=== PATIENT | male | born 1950 | race Caucasian/White ===

== ENCOUNTER 2018-07-08 08:30 | Day surgery (SDC) | payer MEDICARE, OTHER, SELFPAY ==
[2018-07-08 09:48] VITALS: BP 140/76; PULSE 76; RESP 16; TEMP 37.1; O2SAT 99; BMI 28.2
[2018-07-08] MEDS: PROPARACAINE 0.5% OPHTH SOL 2 DROPS EYE-OP (09:55)
[2018-07-08] MEDS: CATARACT EYE COMPOUND (10 DROPS/SYRINGE) 3 DROPS EYE-OP (10:00)
--- NOTE | 2018-07-08 10:44 | P.OP.PRE_ITS ---
Pre-operative Note Interval Note Changes: No
--- NOTE | 2018-07-08 10:44 | PM.PREOP ---
Pre-operative Note Interval Note Changes: No
--- NOTE | 2018-07-08 10:45 | P.OP_ITS ---
Operative Date/Time/Diagnoses Pre-op diagnosis: Cataract Right eye Post-op diagnosis: same Procedure & Clinicians Procedure: Cataract Surgery Same procedure as scheduled: Yes Surgeon: Eric Paul Anesthesia Type: MAC +/- and Sedation Operative Notes Procedure in detail: Patient brought to the operating suite. Tetracaine drops placed in the right eye. Patient was prepped and draped in sterile manner. Wire lid speculum was placed in the eye. Betadine drops were placed on the eye. This was irrigated. Lidocaine jelly was placed on the eye. A paracentesis port was created with a side-port blade. 0.1 mL 1% preservative free lidocaine was injected into the anterior chamber. The anterior chamber was deepened with viscoelastic. 2.6 mm keratome was used to create a temporal clear corneal incision. Cystotome and Utrata forceps were used to create continuous tear capsulorrhexis. Balanced salt solution was used to hydro dissect the nucleus. The phacoemulsification handpiece was inserted and the nucleus was removed using the stop and chop technique. The irrigation aspiration handpiece was inserted and the remaining cortex was removed. Anterior chamber was deepened with viscoelastic. An Rodriges ZCB00 intraocular lens with a power of 13.5 was injected into the capsular bag. Irrigation aspiration handpiece was inserted and the remaining viscoelastic was removed. Incision was hydrated with balanced salt solution and found to be leak free with pressure with Weck- Linnea sponges. 0.1 mL Vigamox injected anterior chamber. 0.3 mL Kenalog 10 mg was injected subconjunctivally. Lid speculum was removed. The patient left the operating room in excellent condition. Complications: none Condition: stable Disposition: same day surgery
[2018-07-08] MEDS: CHONDROIDTIN/SOD HYALURONATE 1.05 ML SYRINGE INTRAOCULA (11:16)
[2018-07-08] MEDS: LIDOCAINE JELLY 2% 5 ML 1 APPLIC TOP (11:17)
[2018-07-08] MEDS: TETRACAINE 0.5% OPHTH DROPS 15 ML 2 DROPS EYE-RIGHT (11:18)
[2018-07-08] MEDS: PHENYLEPHRINE/LIDOCAINE VIAL (OR) 0.2 ML EYE-OP (11:18)
[2018-07-08] MEDS: MOXIFLOXACIN OPHTH DROPS 3 ML BOTTLE 2 DROPS INJ (11:18)
[2018-07-08] MEDS: TRIAMCINOLONE 50 MG/5 ML VIAL INJ (11:18)
[2018-07-08] MEDS: BALANCED SALT IRRIG SOLN NO.2 500 ML, EPINEPHrine 1 MG IRR (11:19)
[2018-07-08 11:30] VITALS: BP 122/72; PULSE 69; RESP 12; TEMP 36.5; O2SAT 97
== END 2018-07-08 11:46 ==
LOC: OR 08:31
PROVIDERS: Visit Provider Ophthalmology
DX: H25.11 Age-related nuclear cataract, right eye (principal); I10 Essential (primary) hypertension; I73.00 Raynaud's syndrome without gangrene
CPT/HCPCS: J0171; J2250; J3010; J3301

== ENCOUNTER 2018-07-22 06:18 | Day surgery (SDC) | payer MEDICARE, OTHER, SELFPAY ==
[2018-07-22] MEDS: PROPARACAINE 0.5% OPHTH SOL 2 DROPS EYE-OP (07:10)
[2018-07-22 07:13] VITALS: BP 130/74; PULSE 71; RESP 16; TEMP 36.7; O2SAT 99; BMI 25.8
[2018-07-22] MEDS: CATARACT EYE COMPOUND (10 DROPS/SYRINGE) 3 DROPS EYE-OP (07:15)
--- NOTE | 2018-07-22 07:45 | P.OP.PRE_ITS ---
Pre-operative Note Interval Note Changes: No
--- NOTE | 2018-07-22 07:45 | PM.PREOP ---
Pre-operative Note Interval Note Changes: No
--- NOTE | 2018-07-22 07:46 | P.OP_ITS ---
Operative Date/Time/Diagnoses Pre-op diagnosis: Nuclear Cataract Left eye Post-op diagnosis: same Procedure & Clinicians Surgeon: Eric Paul Anesthesia Type: MAC +/- and Sedation Operative Notes Procedure in detail: Patient brought to the operating suite. Tetracaine drops placed in the left eye. Patient was prepped and draped in sterile manner. Wire lid speculum was placed in the eye. Betadine drops were placed on the eye. This was irrigated. Lidocaine jelly was placed on the eye. A paracentesis port was created with a side-port blade. 0.1 mL 1% preservative free lidocaine was injected into the anterior chamber. The anterior chamber was deepened with viscoelastic. 2.6 mm keratome was used to create a temporal clear corneal incision. Cystotome and Utrata forceps were used to create continuous tear capsulorrhexis. Balanced salt solution was used to hydro dissect the nucleus. The phacoemulsification handpiece was inserted and the nucleus was removed using the stop and chop technique. The irrigation aspiration handpiece was inserted and the remaining cortex was removed. Anterior chamber was deepened with viscoelastic. An Rodriges ZCB00 intraocular lens with a power of 22.0 was injected into the capsular bag. Irrigation aspiration handpiece was inserted and the remaining viscoelastic was removed. Incision was hydrated with balanced salt solution and found to be leak free with pressure with Weck- Linnea sponges. 0.1 mL Vigamox injected anterior chamber. 0.3 mL Kenalog 10 mg was injected subconjunctivally. Lid speculum was removed. The patient left the operating room in excellent condition. Complications: none Condition: stable Disposition: same day surgery
[2018-07-22] MEDS: PHENYLEPHRINE/LIDOCAINE VIAL (OR) 0.2 ML EYE-OP (07:56)
[2018-07-22] MEDS: TRIAMCINOLONE 50 MG/5 ML VIAL INJ (07:57)
[2018-07-22] MEDS: MOXIFLOXACIN OPHTH DROPS 3 ML BOTTLE 2 DROPS INJ (07:57)
[2018-07-22] MEDS: CHONDROIDTIN/SOD HYALURONATE 1.05 ML SYRINGE INTRAOCULA (07:58)
[2018-07-22] MEDS: LIDOCAINE JELLY 2% 5 ML 1 APPLIC TOP (07:58)
[2018-07-22] MEDS: TETRACAINE 0.5% OPHTH DROPS 15 ML 2 DROPS EYE-LEFT (07:58)
[2018-07-22] MEDS: BALANCED SALT IRRIG SOLN NO.2 500 ML, EPINEPHrine 1 MG IRR (07:59)
[2018-07-22 08:16] VITALS: BP 115/67; PULSE 68; RESP 16; TEMP 36.3; O2SAT 97
== END 2018-07-22 08:24 | disposition home or self-care (01) ==
PROVIDERS: PCP Family Medicine; Visit Provider Ophthalmology
DX: H25.12 Age-related nuclear cataract, left eye (principal); I10 Essential (primary) hypertension; I73.00 Raynaud's syndrome without gangrene
CPT/HCPCS: J0171; J2250; J3010; J3301